=== PATIENT | female | born 1970 | race Two or more races ===

== ENCOUNTER 2017-08-01 21:21 | Emergency (ER) | payer OTHER ==
[~2017-08-01] VITALS: Ht 154.9 cm; Wt 94.3 kg
[2017-08-01 21:39] VITALS: BP 138/86
[2017-08-01] MEDS ORDERED: TORADOL IM STA (21:46)
[2017-08-01] MEDS ORDERED: TORADOL ONE (21:46)
--- NOTE | 2017-08-01 21:52 | ER.PDOC ---
General Chief Complaint: Toothache Stated Complaint: POSS BROKEN TOOTH Time seen by MD: 21:48 Source: patient Exam Limitations: no limitations History of Present Illness Initial Comments Toothache for 1 week Timing/Duration: gradual Associated Symptoms: toothache, jaw pain (L) Severity: moderate Allergies: Coded Allergies: No Known Allergies (Unverified , 08/01/17) Past Medical History Medical History: thyroid disease Social History Smoking: less than 1 pack/day Alcohol Use: none Drug Use: none Constitutional: no symptoms reported Mouth: see HPI Respiratory: no symptoms reported Cardiovascular: no symptoms reported Gastrointestinal: no symptoms reported Musculoskeletal: no symptoms reported Skin: no symptoms reported All Other Systems: Reviewed and Negative Physical Exam General Appearance: alert, no distress Mouth: dental tenderness (left lower last molar) Throat: pharynx nml, voice nml, no airway problems Respiratory: no resp. distress, lungs clear CVS: reg. rate & rhythm, heart sounds nml Abdomen: non-tender, no organomegaly Extremities: non-tender, ROM nml Skin Exam: Normal Color, Warm/Dry NEURO/PSYCH: oriented X3, mood/effect nml Departure Time of Disposition: 21:51 Disposition: 01 HOME, SELF-CARE Impression: Primary Impression: Pain, dental Condition: Stable Referrals: CHARMAINE ESPINOZA MD (PCP) PRIMARY CARE PROVIDER Additional Instructions: Amoxil Tramadol F/U with your Dentist next week Duration or Time Spent with Pa: 20 mins RONALD WOODS MD Aug 01, 2017 21:52
== END 2017-08-01 21:59 | disposition home or self-care (01) ==
LOC: ER 21:21
DX: K08.89 Other specified disorders of teeth and supporting structures (principal); E07.9 Disorder of thyroid, unspecified; F17.210 Nicotine dependence, cigarettes, uncomplicated
CPT/HCPCS: 96372; 99283; J1885

== ENCOUNTER 2019-06-15 15:53 | Emergency (ER) | payer OTHER ==
[~2019-06-15] VITALS: Ht 154.9 cm; Wt 91.6 kg
[2019-06-15 16:25] VITALS: BP 120/78
[2019-06-15 16:36] VITALS: BP 120/78
--- NOTE | 2019-06-15 17:11 | ER.PDOC ---
General Chief Complaint: Cough/Congestion Stated Complaint: COUGH, DIFFICULTY BREATHING Time seen by MD: 16:45 Source: patient, family Exam Limitations: no limitations History of Present Illness Initial Comments fever, sore throat and cough x 3 days Timing/Duration: other Severity: moderate Associated Symptoms: fever/chills, sore throat, cough Allergies: Coded Allergies: No Known Allergies (Unverified , 08/01/17) Constitutional: see HPI EENTM: see HPI Respiratory: see HPI Cardiovascular: no symptoms reported Gastrointestinal: no symptoms reported Genitourinary: no symptoms reported Musculoskeletal: no symptoms reported Skin: no symptoms reported Psychiatric/Neurological: no symptoms reported All Other Systems: Reviewed and Negative Past Medical History Medical History: no pertinent history Surgical History: other Social History Alcohol Use: rarely Drug Use: none Physical Exam General Appearance: mild distress Eye: eyes nml inspection, lids & conjunct. nml Ear: ear nml Nose: nose nml, rhinorrhea Throat: pharyngeal erythema Neck: nml inspection, supple Respiratory: no resp.distress, breath sounds nml, respiratory distress Abdomen: non-tender, no organomegaly CVS: reg rate & rhythm, heart sounds nml Skin: color nml, no rash, warm/dry Extremities: non-tender, nml ROM, no pedal edema NEURO/PSYCH: oriented x 3, CN's nml as tested, motor nml, sensation nml, mood/affect nml Results/Orders Results/Orders Orders - RAISA BOWENS [employer]ER Influenza A&B (06/15/19 16:44) Strep Screen (06/15/19 16:44) Dexamethasone Sodium Phosphate (Decadron (06/15/19 17:27) Dexamethasone Sodium Phosphate (Decadron (06/15/19 17:29) Vital Signs Date Time Temp Pulse Resp B/P (MAP) Pulse Ox O2 Delivery O2 Flow Rate FiO2 06/15/19 16:36 97.8 78 18 120/78 (92) 100 Room Air 06/15/19 16:36 97.8 78 18 06/15/19 16:25 97.8 78 18 100 Laboratory Tests Test 06/15/19 16:39 Influenza Type A Antigen NEGATIVE (NEG) Influenza B Immunofluorescence NEGATIVE (NEG) Group A Streptococcus Screen NEGATIVE (NEGATIVE) Departure Time of Disposition: 17:31 Disposition: 01 HOME, SELF-CARE Impression: Primary Impression: Cough Additional Impressions: Upper respiratory infection Acute pharyngitis Condition: Stable Patient Instructions: Cough, Adult, [id number], Smoking Cessation, Tips For Success Referrals: CHARMAINE ESPINOZA MD (PCP) PRIMARY CARE PROVIDER Additional Instructions: Return if symptoms worsen. See PCP as needed. Promethazine DM take 5ml by mouth every 6-8 hours as needed for cough x 5 days 120 ml no refills Duration or Time Spent with Pa: 18 minutes Return to Work/School Can a patient return to work?: No Can a patient return to school: No Problem Qualifiers Additional Impressions: Upper respiratory infection URI type: unspecified URI Qualified Codes: J06.9 - Acute upper respiratory infection, unspecified Acute pharyngitis Pharyngitis/tonsillitis etiology: other specified organisms Qualified Codes: J02.8 - Acute pharyngitis due to other specified organisms RAISA BOWENS NP Jun 15, 2019 17:11
[2019-06-15] MEDS ORDERED: DECADRON IV STA (17:27)
[2019-06-15] MEDS ORDERED: DECADRON IM STA (17:29)
== END 2019-06-15 17:39 | disposition home or self-care (01) ==
LOC: ER 15:53
DX: J02.9 Acute pharyngitis, unspecified (principal)
CPT/HCPCS: 87070; 87804; 87880; 96372; 99283

== ENCOUNTER → 2019-06-22 | Outpatient (CLI) | payer OTHER ==
--- NOTE | 2019-06-22 08:40 | DIREP ---
PROCEDURE:XR SPINE CERVICAL 2 OR 3 VIEWS COMPARISON:None. INDICATIONS:M54.2 CERVICALGIA FINDINGS: ALIGNMENT:Straightening the normal cervical curvature. VERTEBRAE:Normal. DISK SPACES:Normal. CERVICAL RIBS:None. OTHER:Normal. CONCLUSION:Straightening of the normal cervical curvature which can be seen with muscle spasm. Dictated by: Charles Hein MD on 06/22/2019 at 08:33 AM
== END | disposition home or self-care (01) ==
LOC: RAD 08:10
PROVIDERS: ATTEND Internal Medicine
DX: M43.8X2 Other specified deforming dorsopathies, cervical region (principal)
CPT/HCPCS: 72040